=== PATIENT | female | born 1965 | race Caucasian/White ===

== ENCOUNTER 2020-09-03 14:20 | Emergency (ER) | payer OTHER ==
[~2020-09-03 14:20] MED LIST: CEFUROXIME500 MG PO; MEDROL DOSEPAK 24 MG PO
[2020-09-03 15:26] LABS: HEMOGLOBIN 13.5 gm/dl (12.3-15.3); RED BLOOD COUNT 4.24 M/UL (4.00-5.10); WHITE BLOOD COUNT 9.3 K/UL (4.5-11.0)
[2020-09-03 15:45] LABS: BUN/CREATININE RATIO 21 (0-10)
[2020-09-03] MEDS ORDERED: MEDROL DOSEPAK 24 MG PO (17:23)
== END 2020-09-03 17:48 | disposition home or self-care (01) ==
LOC: ER1 14:20
PROVIDERS: Emergency Medicine
DX: J44.9 Chronic obstructive pulmonary disease, unspecified (principal); F17.200 Nicotine dependence, unspecified, uncomplicated; Z20.822 Contact with and (suspected) exposure to COVID-19
CPT/HCPCS: 71045; 80053; 82550; 82553; 83874; 84484; 85025; 93005; 94664; 96374; 99285; J2930; U0002

== ENCOUNTER 2020-10-04 23:04 | Emergency (ER) | payer OTHER ==
[2020-10-04] MEDS ORDERED: LODINE CAP 300300 MG PO (23:40)
== END 2020-10-04 23:42 | disposition home or self-care (01) ==
LOC: ER1 23:04
DX: S80.11XA Contusion of right lower leg, initial encounter (principal); J44.9 Chronic obstructive pulmonary disease, unspecified; F17.210 Nicotine dependence, cigarettes, uncomplicated; W22.8XXA Striking against or struck by other objects, initial encounter
CPT/HCPCS: 73590; 99283

== ENCOUNTER → 2020-11-28 | Outpatient (CLI) | payer OTHER ==
[~2020-11-28] MED LIST changes: +LODINE CAP 300300 MG PO
== END ==
LOC: KOH-I 13:00
DX: U07.1 COVID-19 (principal)
CPT/HCPCS: 71046

== ENCOUNTER 2021-08-23 12:50 | Emergency (ER) | payer OTHER ==
[2021-08-23] MEDS ORDERED: IBUPROFEN600 MG PO (15:00)
== END 2021-08-23 15:15 | disposition home or self-care (01) ==
LOC: ER1 12:50
DX: S60.222A Contusion of left hand, initial encounter (principal); Z87.891 Personal history of nicotine dependence; X58.XXXA Exposure to other specified factors, initial encounter; Y92.59 Other trade areas as the place of occurrence of the external cause
CPT/HCPCS: 73130; 99283